=== PATIENT | male | born 1945 | race Caucasian/White ===

== ENCOUNTER → 2020-10-01 | Outpatient (CLI) | payer BC, MEDICARE ==
[~2020-10-01] MED LIST: ALEV220T22 PO; BIMA01SOL OD
== END ==
LOC: M LABSMTC 09:15
PROVIDERS: ATTEND Anesthesiology
DX: Z01.812 Encounter for preprocedural laboratory examination (principal); Z20.828 Contact with and (suspected) exposure to other viral communicable diseases

== ENCOUNTER 2020-10-05 09:06 | Day surgery (SDC) | payer BC, MEDICARE ==
[~2020-10-05] VITALS: Ht 177.8 cm; Wt 79.8 kg
[2020-10-05] MEDS ORDERED: NS 1,000 ML IV ONE (10:30)
[2020-10-05] MEDS ORDERED: fentaNYL 100 MCG/2 ML INJECTION (J3010) As Ordered ONE (10:50)
[2020-10-05] MEDS ORDERED: LIDOCAINE 2% 100MG/5ML SDV (FOR ANES.) As Ordered ONE (11:04)
[2020-10-05] MEDS ORDERED: propofoL 200 MG/20 ML VIAL As Ordered ONE ×2 (11:04→11:16)
[2020-10-05] MEDS ORDERED: SIMETHICONE 40MG/0.6ML DROPS 30ML As Ordered ONE (11:04)
--- NOTE | 2020-10-05 11:07 | ROOR ---
Patient Name: Lars Mercado Procedure Date: 10/05/2020 10:47 AM Date of : 1945 Age: 75 Room: [facility] Gender: Male Note Status: Finalized Procedure: Upper Endoscopy + Biopsies + Dilatation Indications: Dysphagia, Heartburn, Exclusion of Marsh's esophagus Providers: Scott Huerta MD Referring MD: NIHARIKA FISHER JR, MD Requesting Provider: Medicines: Monitored Anesthesia Care Complications: No immediate complications. Procedure: Pre-Anesthesia Assessment: - The heart rate, respiratory rate, oxygen saturations, blood pressure, adequacy of pulmonary ventilation, and response to care were monitored throughout the procedure. The Endoscope was introduced through the mouth, and advanced to the second part of duodenum. The upper GI endoscopy was accomplished without difficulty. The patient tolerated the procedure well. Findings: The Z-line was regular and was found 40 cm from the incisors. Non-severe esophagitis with no bleeding was found 40 cm from the incisors. Biopsies were taken with a cold forceps for histology. A TTS dilator was passed through the scope. Dilation with a 15-16.5-18 mm balloon dilator was performed to 18 mm. A medium-sized hiatal hernia was present. No other significant abnormalities were identified in a careful examination of the stomach. The exam of the duodenum was otherwise normal. Impression: - Z-line regular, 40 cm from the incisors. - Non-severe reflux esophagitis. Rule out Marsh's esophagus. Biopsied. Dilated. - Medium-sized hiatal hernia. - The examination was otherwise normal. Recommendation: - Patient has a contact number available for emergencies. The signs and symptoms of potential delayed complications were discussed with the patient. Return to normal activities tomorrow. Written discharge instructions were provided to the patient. - High fiber diet. - Discharge patient to home. - Continue present medications. - Await pathology results. - Telephone GI clinic for pathology results in 1 week. - Return to referring physician. - The findings and recommendations were discussed with the patient. Procedure Code(s): --- Professional --- 64708, Esophagogastroduodenoscopy, flexible, transoral; with transendoscopic balloon dilation of esophagus (less than 30 mm diameter) Diagnosis Code(s): --- Professional --- K21.0, Gastro-esophageal reflux disease with esophagitis K44.9, Diaphragmatic hernia without obstruction or gangrene R13.10, Dysphagia, unspecified R12, Heartburn CPT copyright 2019 [employer]. All rights reserved. The codes documented in this report are preliminary and upon principal consulting engineer review may be revised to meet current compliance requirements. Scott Huerta MD Scott Huerta MD 10/05/2020 11:07:04 AM Electronically signed by Scott Huerta MD Number of Addenda: 0 Note Initiated On: 10/05/2020 10:47 AM Estimated Blood Loss: Estimated blood loss: none.
--- NOTE | 2020-10-05 11:26 | ROOR ---
Patient Name: Lars Mercado Procedure Date: 10/05/2020 10:48 AM Date of : 1945 Age: 75 Room: [facility] Gender: Male Note Status: Finalized Procedure: Total Colonoscopy to Cecum Indications: Screening in patient at increased risk: Family history of 1st-degree relative with colorectal cancer Providers: Scott Huerta MD Referring MD: NIHARIKA FISHER JR, MD Requesting Provider: Medicines: Monitored Anesthesia Care Complications: No immediate complications. Procedure: Pre-Anesthesia Assessment: - The heart rate, respiratory rate, oxygen saturations, blood pressure, adequacy of pulmonary ventilation, and response to care were monitored throughout the procedure. The Colonoscope was introduced through the anus and advanced to the cecum, identified by appendiceal orifice and ileocecal valve. The colonoscopy was performed without difficulty. The patient tolerated the procedure well. The quality of the bowel preparation was excellent. Findings: The perianal and digital rectal examinations were normal. Non-bleeding internal hemorrhoids were found during retroflexion. The hemorrhoids were small and Grade I (internal hemorrhoids that do not prolapse). Multiple small and large-mouthed diverticula were found in the recto-sigmoid colon, sigmoid colon and descending colon. The exam was otherwise without abnormality on direct and retroflexion views. Impression: - Non-bleeding internal hemorrhoids. - Diverticulosis in the recto-sigmoid colon, in the sigmoid colon and in the descending colon. - The examination was otherwise normal on direct and retroflexion views. - No specimens collected. - The exam was otherwise normal to the cecum. Recommendation: - Patient has a contact number available for emergencies. The signs and symptoms of potential delayed complications were discussed with the patient. Return to normal activities tomorrow. Written discharge instructions were provided to the patient. - High fiber diet. - Discharge patient to home. - Continue present medications. - Repeat colonoscopy is not recommended due to current age (66 years or older) for screening purposes. - Return to referring physician. - The findings and recommendations were discussed with the patient. Procedure Code(s): --- Professional --- G0105, Colorectal cancer screening; colonoscopy on individual at high risk Diagnosis Code(s): --- Professional --- Z80.0, Family history of malignant neoplasm of digestive organs K64.0, First degree hemorrhoids K57.30, Diverticulosis of large intestine without perforation or abscess without bleeding CPT copyright 2019 [employer]. All rights reserved. The codes documented in this report are preliminary and upon electronics assembler review may be revised to meet current compliance requirements. Scott Huerta MD Scott Huerta MD 10/05/2020 11:25:53 AM Electronically signed by Scott Huerta MD Number of Addenda: 0 Note Initiated On: 10/05/2020 10:48 AM Estimated Blood Loss: Estimated blood loss: none.
[2020-10-05 11:50] VITALS: BP 118/76
== END 2020-10-05 12:30 | disposition home or self-care (01) ==
LOC: M OPP 09:06
PROVIDERS: ATTEND Internal Medicine Gastroenterology
DX: Z12.11 Encounter for screening for malignant neoplasm of colon (principal); Z80.0 Family history of malignant neoplasm of digestive organs; K57.30 Diverticulosis of large intestine without perforation or abscess without bleeding; K64.0 First degree hemorrhoids; K21.00 Gastro-esophageal reflux disease with esophagitis, without bleeding; K44.9 Diaphragmatic hernia without obstruction or gangrene; R13.10 Dysphagia, unspecified; R12 Heartburn; Z87.891 Personal history of nicotine dependence; Z88.8 Allergy status to other drugs, medicaments and biological substances
CPT/HCPCS: 43239; 43249; 45378; 88305; J3010

== ENCOUNTER → 2022-02-20 | Outpatient (REF) | payer BC | LOC: M LAB REF 13:02 | PROVIDERS: ATTEND Orthopaedic Surgery | DX: R22.31 Localized swelling, mass and lump, right upper limb (principal) ==

== ENCOUNTER → 2022-08-06 | Outpatient (REF) | payer MEDICARE | LOC: M LAB REF 16:17 | PROVIDERS: ATTEND Physician Assistant Medical | DX: G31.84 Mild cognitive impairment of uncertain or unknown etiology (principal) ==

== ENCOUNTER → 2022-09-29 | Outpatient (CLI) | payer MEDICARE | LOC: M RAD 10:58 | PROVIDERS: ATTEND Physician Assistant Medical | DX: R25.1 Tremor, unspecified (principal); R41.3 Other amnesia ==

== ENCOUNTER 2023-06-15 13:53 | Observation (INO) | payer MEDICARE ==
[~2023-06-15] VITALS: Ht 177.8 cm; Wt 74.2 kg
[2023-06-15] MEDS ORDERED: BIMA01SOL OU (14:10)
[2023-06-15] MEDS ORDERED: ATOR1TAB21 PO (14:10)
[2023-06-15] MEDS ORDERED: ASPI81CH33 PO (14:10)
[2023-06-15] MEDS ORDERED: SERT25TA21 PO (14:10)
[2023-06-15 15:26] LABS: BASO % 0.3 % (0.0-1.0); EOS % 0.2 % (0.0-3.0); HEMATOCRIT 44.7 % (42.0-52.0); LYMPH # 0.9 10^3/uL (1.5-5.0); LYMPH % 6.8 % (24.0-44.0); MEAN CORPUSCULAR HEMOGLOBIN 30.9 pg (27.0-33.0); MEAN CORPUSCULAR HGB CONC 33.6 g/dl (32.0-36.5); MONO # 0.7 10^3/uL (0.0-0.8); MONO % 5.7 % (2.0-8.0); NEUTROPHILS # 11.3 10^3/uL (1.5-8.5); NEUTROPHILS % 86.5 % (36.0-66.0); PLATELET COUNT, AUTOMATED 375 10^3/uL (150-450); RED BLOOD COUNT 4.86 10^6/uL (4.30-6.10); WHITE BLOOD COUNT 13.1 10^3/uL (4.0-10.0)
[2023-06-15 15:48] LABS: BLOOD UREA NITROGEN 18 MG/DL (9-23); CALCIUM LEVEL 9.3 MG/DL (8.3-10.6); CARBON DIOXIDE LEVEL 26 MMOL/L (20-31); CHLORIDE LEVEL 105 MMOL/L (98-107); CREATININE FOR GFR 0.83 MG/DL (0.70-1.30); GLOMERULAR FILTRATION RATE > 60.0 (>35); GLUCOSE, FASTING 115 MG/DL (74-106); MAGNESIUM LEVEL 2.1 MG/DL (1.8-2.4); POTASSIUM SERUM 4.5 MMOL/L (3.5-5.1); SODIUM LEVEL 139 MMOL/L (136-145)
[2023-06-15 15:52] LABS: CPK CREATINE PHOSPHOKINASE 118 U/L (46-171); MB/CK RELATIVE INDEX 1.69 (< OR =4)
[2023-06-15] MEDS ORDERED: MED REC IN PROGRESS XX SCH (18:15)
[2023-06-15] MEDS ORDERED: OMEP1CAP73 PO (18:33)
[2023-06-15] MEDS ORDERED: EPIN1DRO OU (18:33)
[2023-06-15] MEDS ORDERED: ASPI-161 PO (18:33)
[2023-06-15] MEDS ORDERED: CLAR10TA7 PO (18:33)
[2023-06-15] MEDS ORDERED: HOME MED LIST COMPLETE! XX SCH (18:35)
[2023-06-15] MEDS ORDERED: ACETAMINOPHEN TAB 650MG DOSE (2X325MG) PO PRN (19:35)
[2023-06-15] MEDS ORDERED: MOM 30ML SUSPENSION UDC PO PRN (19:35)
[2023-06-15] MEDS ORDERED: DOCUSATE SODIUM 100MG CAPSULE PO PRN (19:35)
[2023-06-15 22:20] VITALS: BP_SYST 112; BP_SYST 122; BP_SYST 127; BP_DIAS 63; BP_DIAS 68; BP_DIAS 74
[2023-06-15 22:30] VITALS: BP 131/81; TEMP 98.1; O2SAT 96
[2023-06-16] VITALS (7 sets, daily range): BP systolic 108–134; BP diastolic 66–81; TEMP 97.7–98.2; O2SAT 95–98
[2023-06-16 05:46] LABS: HEMATOCRIT 41.5 % (42.0-52.0); HEMOGLOBIN 13.9 g/dl (13.5-17.5); MEAN CORPUSCULAR HEMOGLOBIN 30.8 pg (27.0-33.0); MEAN CORPUSCULAR HGB CONC 33.5 g/dl (32.0-36.5); PLATELET COUNT, AUTOMATED 342 10^3/uL (150-450); RED BLOOD COUNT 4.51 10^6/uL (4.30-6.10); WHITE BLOOD COUNT 9.5 10^3/uL (4.0-10.0)
[2023-06-16 06:16] LABS: BLOOD UREA NITROGEN 16 MG/DL (9-23); CALCIUM LEVEL 8.6 MG/DL (8.3-10.6); CARBON DIOXIDE LEVEL 26 MMOL/L (20-31); CHLORIDE LEVEL 103 MMOL/L (98-107); CREATININE FOR GFR 0.79 MG/DL (0.70-1.30); GLOMERULAR FILTRATION RATE > 60.0 (>35); GLUCOSE, FASTING 101 MG/DL (74-106); POTASSIUM SERUM 3.8 MMOL/L (3.5-5.1); SODIUM LEVEL 138 MMOL/L (136-145)
[2023-06-16] MEDS ORDERED: NS 1,000 ML IV ONE (07:05)
[2023-06-16] MEDS: ENOXAPARIN 40MG/0.4ML SYRINGE (J1650 PER 10MG) SC SCH (07:56)
[2023-06-16] MEDS ORDERED: POTASSIUM CHLORIDE 10MEQ SR TABLET PO ONE (09:45)
[2023-06-16] MEDS: AMOXICILLIN 500 MG CAP PO SCH ×3 (11:14→21:03)
[2023-06-16 16:08] LABS: IONIZED CALCIUM 4.7 MG/DL (4.5-5.3)
[2023-06-16 16:51] LABS: POTASSIUM SERUM 4.3 MMOL/L (3.5-5.1)
[2023-06-16] MEDS: LACTOBACILLUS ACIDOPHILUS CAP (BACID) PO SCH (17:50)
[2023-06-17 05:30] VITALS: BP 125/74; TEMP 97.9; O2SAT 97
[2023-06-17] MEDS ORDERED: AMOX500C PO (08:34)
[2023-06-17] MEDS ORDERED: RISATAB3 PO (08:34)
[2023-06-17] MEDS: AMOXICILLIN 500 MG CAP PO SCH (08:55)
[2023-06-17] MEDS: LACTOBACILLUS ACIDOPHILUS CAP (BACID) PO SCH (08:55)
[2023-06-17] MEDS: ENOXAPARIN 40MG/0.4ML SYRINGE (J1650 PER 10MG) SC SCH (08:56)
== END 2023-06-17 13:37 | disposition home or self-care (01) ==
LOC: M ED 13:53 → M ED INP 13:54 → ENRESERV 20:45 → M MSPAV 22:20
PROVIDERS: ADMIT Internal Medicine; ATTEND General Practice
DX: R55 Syncope and collapse (principal); S02.2XXA Fracture of nasal bones, initial encounter for closed fracture; V58.4XXA Person boarding or alighting a pick-up truck or van injured in noncollision transport accident, initial encounter; Y92.014 Private driveway to single-family (private) house as the place of occurrence of the external cause; Y93.9 Activity, unspecified; D72.829 Elevated white blood cell count, unspecified; K21.9 Gastro-esophageal reflux disease without esophagitis; Z86.73 Personal history of transient ischemic attack (TIA), and cerebral infarction without residual deficits; Z87.891 Personal history of nicotine dependence; Z79.82 Long term (current) use of aspirin; Z79.899 Other long term (current) drug therapy; J30.2 Other seasonal allergic rhinitis
CPT/HCPCS: 36415; 70450; 70486; 71045; 72125; 80048; 81001; 82330; 82550; 82553; 83735; 84132; 84484; 85025; 85027; 87635; 93005; 93041; 93306; 93880; 96372; 96374; 97161; 97530; 99285; G0378; J1650